=== PATIENT | female | born 1955 ===

== ENCOUNTER 2024-08-09 07:59 | Day surgery (SDC) | payer OTHER, SELFPAY ==
--- NOTE | 2024-08-09 | PATH_ITS ---
[facility] Accession Number: [id number] No. of containers..04 Tissue . 01 Material submitted: . PART A: colon - ASCENDING POLYP PART B: cecum - CECAL POLYP PART C: colon - SECOND ASCENDING POLYP PART D: sigmoid colon - SIGMOID POLYP . 01 Diagnosis: Part A: ASCENDING POLYP: Tubular adenoma. . Part B: CECAL POLYP: Tubular adenoma. . Part C: SECOND ASCENDING POLYP: Tubular adenoma. . Part D: SIGMOID POLYP: Colonic mucosa with no diagnostic alterations. No neoplasm or definite polyp identified. [facility] 08/13/20241448 Local . 01 Electronically signed: . Bernabe Leigh MD, Pathologist NPI- [id number] . 01 Gross description: . A. Received in formalin with two patient identifiers and ascending colon polyp, are multiple hernandez and brown soft tissue fragments aggregating to 1.3 x 0.5 x 0.2 cm. Filtered and submitted in A1. . B. Received in formalin with two patient identifiers and cecal polyp, is a single hernandez soft tissue fragment, 0.4 cm in greatest dimension, submitted in B1. . C. Received in formalin with two patient identifiers and second ascending polyp, is a single hernandez soft tissue fragment, 0.3 cm in greatest dimension, submitted in C1. . D. Received in formalin with two patient identifiers and sigmoid polyp, is a single hernandez soft tissue fragment, 0.3 cm in greatest dimension, submitted in D1. ([id number]) /MRV 08/13/20241448 Local . 01 Pathologist provided ICD-10: D12.0, D12.2, K63.5 . 01 CPT . 280380, 179523, 676759, 964937 Specimen Comment: A courtesy copy of this report has been sent to [phone] Performed at: [address] [facility], [place], [place] [id number] MD Bernabe Leigh MD Phone: [phone]
[2024-08-09 08:23] VITALS: BP 162/105; PULSE 84; RESP 20; TEMP 36.4; O2SAT 95
--- NOTE | 2024-08-09 08:55 | PM.HP.1 ---
History of Present Illness History of Present Illness Date Patient Seen: 08/09/24 Time Patient Seen: 08:55 Chief complaint: SDC Narrative: Lory is a 68-year-old woman with a history of colon polyps. Her last colonoscopy was proximally 2 years ago at [facility]. She does not know exactly how many polyps were removed. Her mother was diagnosed with colon cancer in her 90s. [facility] Social History Smoking Status: Current every day smoker alcohol intake: current Meds Home Medications and Allergies Home Medications Medication Instructions Recorded Confirmed Type sodium,potassium,mag sulfates 17.5 See Rx Instructions PO .COMPLEX 07/06/24 Rx gram-3.13 gram-1.6 gram oral soln #354 mL (Suprep Bowel Prep Kit) alprazolam 0.5 mg tablet 2.5 mg PO DAILY 08/09/24 08/09/24 History amlodipine 5 mg tablet (Norvasc) 7 mg PO DAILY 08/09/24 08/09/24 History ketorolac 10 mg tablet 10 mg PO Q6H PRN Pain (Scale Score 08/09/24 08/09/24 History 4-6) lisinopril 40 mg tablet 40 mg PO DAILY 08/09/24 08/09/24 History Allergies Allergy/AdvReac Type Severity Reaction Status Date / Time morphine Allergy Intermediate ITCHING Verified 08/09/24 08:33 ibuprofen AdvReac Severe Back Pain Verified 08/09/24 08:33 Exam Vital Signs (past 8 hours): - 08/09/24 08:23 Temperature 97.6 F Pulse Rate 84 Respiratory Rate 20 Blood Pressure 162/105 H Pulse Oximetry 95 Oxygen Delivery Method Room Air Oxygen Delivery Method Room Air Const General: No acute distress Resp Effort & Inspection: normal respiratory effort Assessment & Plan Assessment and plan (1) History of colon polyps: Status: Acute Plan We discussed the risks and benefits of colonoscopy for history of polyps and she would like to proceed. Time-Based Coding :: [TOTAL MINUTES] spent with patient and on the chart (including review of chart, obtaining history, exam, reviewing outside data, placing orders, documenting exam and treatment plan, and counseling patient) on [DATE].
[2024-08-09 09:40] VITALS: BP 186/118; PULSE 71; RESP 25; TEMP 36.3; O2SAT 97
--- NOTE | 2024-08-09 09:42 | PM.OP.COLON ---
Operative Date/Time/Diagnoses Date of procedure: 08/09/24 Time of procedure: 09:42 Pre-op diagnosis: History of colon polyps Post-op diagnosis: same Procedure & Clinicians Study performed: Colonoscopy Same procedure as scheduled: Yes Surgeon: Tank Mcnair Procedure Notes Procedure in detail: Surgeon: Tank Mcnair MD Anesthesia: Wilver Pierre MD Procedure: The patient was brought to the endoscopy suite, placed in left lateral decubitus position. The patient was connected to monitoring devices. A time-out was performed. Sedation was administered. Once the patient was adequately sedated, a digital rectal exam was performed and was normal. The scope was then inserted and advanced to the cecum where the appendiceal orifice was identified and photographed. The scope was then slowly withdrawn over greater than 6 minutes. The mucosa was thoroughly inspected. There was a 4 mm polyp in the cecum removed with the Jumbo forceps. There was 1.2 cm flat polyp in the ascending colon just past the ileocecal valve. It appeared to be quite fixed to the underlying tissue and there were folds of mucosa radiating from polyp. We attempted a saline lift but polyp would not lift easily. We attempted to remove the polyp with the snare but could not get the snare to stay on the relatively flat fixed polyp. We did suctioned a few shavings off of the polyp from the failed attempt at snaring. We then took multiple biopsies using a Jumbo cold forceps. We found an additional 5 mm ascending colon polyp which was removed with the Jumbo forceps. There was a 5 mm polyp in the sigmoid colon removed with the Jumbo forceps. There was scattered sigmoid diverticulosis. The scope was retroflexed in the rectum. There were internal hemorrhoids. The scope was straightened and removed. The patient was awakened and brought to recovery. Scope withdrawal time: 23 minutes Sedation time: 29 minutes EBL: 5 mL Findings: 4 mm cecal polyp, 1.2 cm flat fixed ascending colon polyp, 5 mm ascending polyp, 5 mm sigmoid polyp, sigmoid diverticulosis and internal hemorrhoids Post-procedure Disposition: PACU
[2024-08-09 09:45] VITALS: BP 155/97; PULSE 68; RESP 21; O2SAT 97
[2024-08-09 09:50] VITALS: BP 152/95; PULSE 66; RESP 22; O2SAT 97
[2024-08-09 10:05] VITALS: BP 114/77; PULSE 65; RESP 16; O2SAT 97
== END 2024-08-09 10:17 | disposition home or self-care (01) ==
PROVIDERS: PCP Internal Medicine; Referring Provider Surgery; Visit Provider Surgery
PROC: 0DJD8ZZ Inspection of Lower Intestinal Tract, Via Natural or Artificial Opening Endoscopic (ICD-10-PCS; CPT 45378; principal; 2024-08-09 09:15)
DX: Z12.11 Encounter for screening for malignant neoplasm of colon (principal); Z86.0100 Personal history of colon polyps, unspecified; K57.30 Diverticulosis of large intestine without perforation or abscess without bleeding; K64.8 Other hemorrhoids; D12.2 Benign neoplasm of ascending colon; D12.0 Benign neoplasm of cecum; D12.5 Benign neoplasm of sigmoid colon
CPT/HCPCS: 45381; 45385; 45380; J2704

== ENCOUNTER 2025-06-27 17:29 | Observation (INO) | payer OTHER, SELFPAY ==
[2025-06-27] VITALS (11 sets, daily range): BP systolic 142–179; BP diastolic 75–139; PULSE 63–75; RESP 16–27; TEMP 36.1; O2SAT 95–98; BMI 42.5
--- NOTE | 2025-06-27 17:46 | EKG_ITS ---
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
--- NOTE | 2025-06-27 17:46 | DI.RAD.S_ITS ---
PROCEDURE: XR CHEST 1V INDICATIONS: Chest Pain TECHNIQUE: One view of the chest was acquired. COMPARISON: None. FINDINGS: Surgical changes and devices: None. Lungs and pleura: Lungs are clear. No pleural effusions or pneumothorax. Mediastinum: Mediastinal contours appear normal. Heart size is normal. Bones and chest wall: No suspicious bony lesions. Overlying soft tissues appear unremarkable. IMPRESSION: No acute cardiopulmonary abnormality is seen. Dictated by: Teddy Chavez M.D. on 06/27/2025 at 18:22 Approved by: Teddy Chavez M.D. on 06/27/2025 at 18:22
[2025-06-27 18:35] LABS: INR 1.0 (0.9-1.3); Prothrombin Time 11.0 SECONDS (9.4-12.5)
[2025-06-27 18:37] LABS: PTT Partial Thromboplastin Tim 31 SECONDS (25.1-36.5)
[2025-06-27 18:44] LABS: Alanine Aminotransferase 24 IU/L (<35); Albumin 4.6 g/dL (3.5-5.0); Albumin Globulin Ratio 1.7 (1.0-2.8); Alkaline Phosphatase 64 U/L (38-126); Blood Urea Nitrogen 15 mg/dL (7-17); Calcium 9.9 mg/dL (8.4-10.2); Carbon Dioxide 27 mmol/L (22-32); Chloride 101 mmol/L (98-107); Creatine Kinase 37 U/L (30-135); Estimated Glomerular Filt Rate > 60 mL/min (>60); Globulin 2.7 g/dL (1.7-4.1); Glucose 102 mg/dL (70-99); HEMOLYSIS 40 (0-50); Lipase 112 U/L (23-300); Magnesium 1.7 mg/dL (1.6-2.3); Potassium 4.3 mmol/L (3.4-5.1); Sodium 137 mmol/L (137-145); Total Protein 7.3 g/dL (6.3-8.2)
[2025-06-27 18:47] LABS: Add Manual Diff / Slide Review NO; Hematocrit 44.1 % (36-46); Hemoglobin 14.6 g/dL (12.0-16.0); Lymphocytes Absolute Auto 1500 /uL (1100-4500); Mean Corpuscular HGB Conc 33.2 % (30-36); Mean Corpuscular Hemoglobin 29.2 PG (26-34); Mean Corpuscular Volume 88.0 fL (80-100); Platelet Count 267 X10^3/uL (150-400)
[2025-06-27 18:56] LABS: NT-proBNP (BNP-Adult 18+) 188 pg/mL (<125); Troponin I < 0.012 ng/mL (0.01-0.034)
--- NOTE | 2025-06-27 20:42 | ED.ARRPALP ---
HPI - Arrhythmia/Palpitations General Chief Complaint: Arrhythmia/Palpitations Stated Complaint: irregular heart beat Time Seen by Provider: 06/27/25 20:41 Source: patient, RN notes reviewed and old records reviewed Mode of arrival: Ambulatory Limitations: no limitations History of Present Illness HPI narrative: 69-year-old female history of lymphoma treated with chemo and radiation, hypertension with complaint of chest tightness and irregular heartbeat for 4 days. Patient notes this has a little bit of mild headache she thought she had a fever the other day. She has felt a little bit of sweaty she has has a little bit of mild nonproductive cough. Denies any other upper respiratory symptoms no nasal congestion. She has a little bit of left-sided chest discomfort radiates towards left shoulder. She has noticed it has been irregular heartbeat when she is up and ambulating but not at rest. She noted his blood pressure has been high in the last several days. She denies any nausea or vomiting. No new swelling of her extremities. Has not had similar symptoms in the past. Patient did take an aspirin 325 mg. Prior surgeries are breast reduction and ureteral stent secondary to lymphoma she states the mass resolved after chemo and radiation. No tobacco, 1 alcoholic drink nightly, no recreational drugs. Denies significant cardiac history with family. Primary care is a Meghann Dewitt. Related Data Home Medications ?Medication ?Instructions ?Recorded ?Confirmed alprazolam 0.5 mg tablet 2.5 mg PO DAILY 08/09/24 06/28/25 amlodipine 5 mg tablet (Norvasc) 7 mg PO DAILY 08/09/24 06/28/25 ketorolac 10 mg tablet 10 mg PO Q6H PRN Pain (Scale Score 08/09/24 06/28/25 4-6) lisinopril 40 mg tablet 40 mg PO DAILY 08/09/24 06/28/25 Allergies Allergy/AdvReac Type Severity Reaction Status Date / Time morphine Allergy Intermediate ITCHING Verified 09/12/24 11:33 ibuprofen AdvReac Severe Back Pain Verified 09/12/24 11:33 Review of Systems Review of Systems ROS Unobtainable: All systems reviewed & are unremarkable except as noted in HPI and below Patient History Social History household members: spouse Smoking Status: Never smoker alcohol intake: current Smoking Status: Never smoker alcohol intake frequency: 0-2 drinks per day Exam Narrative Exam Narrative: GENERAL: Alert and oriented x three, female in mild distress HEENT: Head normocephalic, atraumatic, EOMI, pupils reactive, face symmetric, moist mucous membranes NECK: Supple, full range of motion CARDIOVASCULAR: Regular rate and rhythm without murmurs, rubs or gallops. No JVD. No edema bilateral lower extremities RESPIRATORY: Breath sounds equal bilaterally, no wheezes rales or rhonchi. ABDOMEN: Soft, nontender. Normoactive bowel sounds all 4 quadrants. No guarding or rebound, rigidity, no mass : No CVA tenderness EXTREMITIES: Normal range of motion, no clubbing or edema. Neurovascularly intact NEUROLOGICAL: Cranial nerves II through XII grossly intact. Moving all extremities SKIN: Warm, dry, no petechiae, no rashes or lesions. Initial Vital Signs Initial Vital Signs: Vital Signs Temperature 97 F L 06/27/25 17:42 Pulse Rate 72 06/27/25 17:42 Respiratory Rate 16 06/27/25 17:42 Blood Pressure 177/104 H 06/27/25 17:42 Pulse Oximetry 96 06/27/25 17:42 Oxygen Delivery Method Room Air 06/27/25 17:42 Scores HEART Score Heart Score history: Highly Suspicious Heart Score EKG: Normal Heart Score Age: > or = 65 years old Heart Score risk factors: 1-2 risk factors Heart Score troponin: < or = to normal limit Heart Score Total: 5 Course Orders Ordered: ED Orders 06/27/25 20:44 EKG-12 Lead Stat 06/27/25 21:06 Trop I [Troponin I] Stat 06/27/25 21:07 Covid-19 + FLU A/B + RSV - PCR Stat 06/27/25 22:07 Consult to Cardiology Stat Acetaminophen (Acetaminophen 325 Mg Tablet) 650 mg PO Q6H PRN PRN Reason: Fever/Mild Pain (1-3) Amlodipine Besylate (Amlodipine 5 Mg Tablet) 7 mg PO DAILY [facility] Aspirin (Aspirin Ec 81 Mg Tablet) 81 mg PO DAILY [facility] Labetalol HCl (Labetalol 20 Mg/4 Ml Syringe) 10 mg IV Q4HR PRN PRN Reason: SBP > 180 or DBP > 100 Lisinopril (Lisinopril 20 Mg Tablet) 40 mg PO DAILY [facility] Morphine Sulfate (Morphine 4 Mg/Ml Inj) 3 mg IV Q2HR PRN PRN Reason: Pain, Severe (7-10) Naloxone HCl (Naloxone 0.4 Mg/Ml Vial) 0.2 mg IV Q2MIN PRN PRN Reason: Opiate Reversal Nitroglycerin (Nitroglycerin 0.4 Mg Sl Tab) 0.4 mg SL [id number] PRN PRN Reason: Chest Pain Non-Formulary Medication (Alprazolam) 2.5 mg PO DAILY HELGA Ondansetron HCl (Ondansetron 4 Mg/2 Ml Inj) 4 mg IV Q8HR PRN PRN Reason: Nausea And Vomiting Sodium Chloride (Sodium Chloride 0.9% Flush) 10 ml IV PRN PRN PRN Reason: Flush Sodium Chloride (Sodium Chloride 0.9% Flush) 10 ml IV BID HELGA Discontinued Medications Aspirin (Aspirin 81 Mg Chew Tab) 324 mg PO NOW ONE Stop: 06/27/25 17:47 Last Admin: 06/27/25 22:11 Dose: Not Given Documented By: DANIEL Hydralazine HCl (Hydralazine 20 Mg/Ml Vial) 10 mg IV NOW ONE Stop: 06/28/25 01:02 Last Admin: 06/28/25 01:33 Dose: 10 mg Documented By: Vital Signs Vital signs: Vital Signs - 8 hr 06/27/25 20:30 06/27/25 20:30 06/27/25 21:00 Pulse Rate 65 63 Respiratory Rate 18 19 Blood Pressure 165/85 H Pulse Oximetry 97 96 06/27/25 21:01 06/27/25 21:01 06/27/25 21:30 Pulse Rate 64 64 Respiratory Rate 19 20 Blood Pressure 179/84 H Pulse Oximetry 97 96 06/27/25 21:30 06/27/25 22:00 06/27/25 22:00 Pulse Rate 64 Respiratory Rate 17 Blood Pressure 154/91 H 142/90 H Pulse Oximetry 96 06/27/25 22:30 06/27/25 22:30 Pulse Rate 69 Respiratory Rate 19 Blood Pressure 143/90 H Pulse Oximetry 95 MDM - Arrhythmia/Palpitations Lab Data 06/27/25 18:15 06/27/25 18:15 Labs: Lab Results 06/27/25 06/27/25 06/27/25 Range/Units 18:15 21:06 21:07 WBC 7.4 (4.5-11.0) X10^3/uL RBC 5.02 (4.0-5.2) X10^6/uL Hgb 14.6 (12.0-16.0) g/dL Hct 44.1 (36-46) % MCV 88.0 (80-100) fL MCH 29.2 (26-34) PG MCHC 33.2 (30-36) % RDW 13.9 (11.6-14.8) % Plt Count 267 (150-400) X10^3/uL Neut % (Auto) 69.4 (50-75) % Lymph % (Auto) 20.2 L (25-40) % [place] % (Auto) 8.5 (3-14) % Eos % (Auto) 1.2 L (2-4) % Baso % (Auto) 0.7 (0-2) % Neut # (Auto) 5100 (8128-2807) /uL Lymph # (Auto) 1500 (3045-5546) /uL [place] # (Auto) 600 (0-900) /uL Eos # (Auto) 100 (0-450) /uL Baso # (Auto) 100 (0-100) /uL PT 11.0 (9.4-12.5) SECONDS INR 1.0 (0.9-1.3) APTT 31 (25.1-36.5) SECONDS Sodium 137 (137-145) mmol/L Potassium 4.3 (3.4-5.1) mmol/L Chloride 101 (98-107) mmol/L Carbon Dioxide 27 (22-32) mmol/L BUN 15 (7-17) mg/dL Creatinine 0.72 (0.52-1.04) mg/dL Estimated GFR > 60 (>60) mL/min BUN/Creatinine Ratio 20.8 (6-22) Glucose 102 H (70-99) mg/dL Calcium 9.9 (8.4-10.2) mg/dL Magnesium 1.7 (1.6-2.3) mg/dL Total Bilirubin 0.6 (0.2-1.3) mg/dL AST 30 (14-36) IU/L ALT 24 (<35) IU/L Alkaline Phosphatase 64 (38-126) U/L Total Creatine Kinase 37 (30-135) U/L Troponin I < 0.012 < 0.012 (0.01-0.034) ng/mL NT-Pro-B Natriuret Pep 188 H (<125) pg/mL Total Protein 7.3 (6.3-8.2) g/dL Albumin 4.6 (3.5-5.0) g/dL Globulin 2.7 (1.7-4.1) g/dL Albumin/Globulin Ratio 1.7 (1.0-2.8) Lipase 112 (23-300) U/L SARS-CoV-2 (PCR) Negative (Negative) Influenza A (RT-PCR) Flu a negative (NEGATIVE) Influenza B (RT-PCR) Flu b negative (NEGATIVE) RSV (PCR) Negative (Negative) ECG Data Attestation: I personally reviewed and interpreted this ECG as follows: Prior ECG tracings: not available for review Interpretation: Sinus rhythm rate of 68 CT 146 QRS 84 QTC of 408, no acute ST-elevation or depression noted no prior for comparison. Patient has has a biphasic P wave was Q-wave in lead 340 and AVF not appreciated in lead 2. No priors for comparison Repeat EKG shows a sinus rhythm rate of 63 CT 158 QRS is 78 QTC 392, no acute ST elevation depression noted. MDM Narrative Medical decision making narrative: EKG shows sinus rhythm. Repeat EKG no dynamic changes appreciated. Labs show normal CBC, coags, CMP, glucose are appropriate troponins less than 0.012 with a BNP of 188. Repeat troponin as less than 0.012 Chest x-ray shows no acute cardiopulmonary abnormality. covid/influenza/RSV is negative. Patient took aspirin 325 mg at home earlier today. Heart score is 5. Discussed chest pain observation, patient is agreeable. Currently asymptomatic. Spoke with cardiology, Dr. Navarro @ [phone] stress test and admission. Will see in the morning. Spoke with hospitalist Dr. Preston @ [phone] accepts for observation. Discharge Plan Departure Patient Disposition: Admitted as Observation Clinical Impression: Chest pain Admit Date/Time: 06/27/25 22:30 Admit Provider: José Miguel Preston
--- NOTE | 2025-06-27 21:15 | EKG_ITS ---
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
[2025-06-27 21:39] LABS: Troponin I < 0.012 ng/mL (0.01-0.034)
--- NOTE | 2025-06-27 21:45 | PC.NURSE ---
The patient has been having 2 days of feeling crappy. She has been having higher blooder pressure than normal even after taking her HTN meds as prescribed. She even took and extra 2mg of her norvasc which seemed to help her HTN. She also take lisinopril. She states her palpitations, hot and sweaty feelings happen more when she gets up to walk. She also feels heavy in the chest with shoulder pain, tired, malaise, and lightheaded. She has been having some mild constipation.
[2025-06-27 21:48] LABS: Influenza A - CEPHEID Flu A NEGATIVE (NEGATIVE); Influenza B - CEPHEID Flu B NEGATIVE (NEGATIVE)
[2025-06-27 21:49] LABS: COVID-19 CEPHEID 4-PLEX PCR Negative (Negative)
--- NOTE | 2025-06-27 22:52 | DI.ECHO.S_ITS ---
:Name: JOSEPH REAGAN? Study Date: 06/28/2025? Height: 67 in? : :Hospital ?ReadingLocation:? Weight: 280 lb : : ?Gender: Female?BSA: 2.3 m2??? : :: 1955? Age: 69 yrs? BP: 126/81 mmHg: :Reason For Study: CHEST PAIN? : :Ordering Physician: TAMIKO,? : :COLLIN?Performed By: Erlin Silvestre?: :Referring: COLLIN MORRISON? : + + Interpretation Summary The ejection fraction is estimated to be 60-65%. Normal diastolic function. The right ventricle is normal in size and function. Pulmonary artery pressures cannot be estimated because of the lack of a measurable TR jet velocity. The ascending aorta is enlarged 3.9cm. No significant valvular abnormalities. Procedure: ?A two-dimensional transthoracic echocardiogram with color flow and Doppler was performed. The study quality was technically difficult. A contrast injection of Definity was performed to improve assessment of LV function. There is no prior echocardiogram noted for this patient. The patient was in normal sinus rhythm during the exam. Left Ventricle: ?The left ventricle is normal in size. Left ventricular wall thickness is mildly increased. The ejection fraction is estimated to be 60-65%. There are no focal wall motion abnormalities. Normal diastolic function. Right Ventricle: ?The right ventricle is normal in size and function. Atria: ?The left atrial size is normal. Right atrial size is normal.The interatrial septum is not well visualized. Mitral Valve: ?Thereis mild mitral annular calcification. The mitral valve is grossly normal. There is no mitral regurgitation noted. Aortic Valve:? ?The aortic valve is trileaflet. The aortic valve opens well. The aortic valve is mildly calcified. There is no aortic valve stenosis. No aortic regurgitation is present. Tricuspid Valve:? ?The tricuspid valve is not well visualized. No tricuspid regurgitation. Pulmonary artery pressures cannot be estimated because of the lack of a measurable TR jet velocity. Pulmonic Valve: ?The pulmonic valve is not well visualized. There is no pulmonic valvular regurgitation. Great Vessels:? ?The aortic root is normal size. The ascending aorta is mildly enlarged. The pulmonary is not well visualized. The inferior vena cava was not well visualized. Pericardium/ Pleura ?Thereis no pericardial effusion. There is no pleural effusion. MMode/2D Measurements & Calculations LVIDd: 4.6 cm?LVOTdiam: 2.3 cm LVIDs: 3.1 cm?Ao root diam: 3.7 cm FS: 33.2 %? asc Aorta Diam: 3.9 cm EPSS: 0.64 cm IVSd: 1.2 cm LVPWd: 1.1 cm LV swan. diameter/BSA (cm/m^2): 2.0 LV sys. diameter/BSA (cm/m^2):1.3 LA A2 area: 10.2 cm2?RA long axis: 5.9 cm LA A4 area: 26.5 cm2?RA area: 15.7 cm2 LA length (vol): 6.6 cm? RA vol: 35.6 ml LA vol: 34.5 ml? RA : 15.3 ml/m2 LA vol index: 14.8 ml/m2 RVD1 (basal): 2.6 cm RVD2 (mid): 2.0 cm TAPSE: 2.9 cm Doppler Measurements & Calculations Ao V2 max: 126.8 cm/sec? LVOT Max Himanshu: 107.7 cm/sec Ao V2 mean: 87.8 cm/sec?LV V1 max P.6 mmHg Ao max P.4 mmHg?LV V1 VTI: 23.5 cm Ao mean P.4 mmHg? DIEGO(I,D): 3.7 cm2 Ao V2 VTI: 25.4 cm?DIEGO(V,D): 3.4 cm2 sev ratio: 0.93 DIEGO indexed to BSA (cm^2/m^2): 1.6 MV E max himanshu: 61.2 cm/sec?PA V2 max: 107.1 cm/sec MV A max himanshu: 86.4 cm/sec?PA V2 mean: 70.4 cm/sec MV E/A: 0.71?PA mean P.2 mmHg Med Peak E' Himanshu: 6.7 cm/sec?PA pr(Accel): 48.2 mmHg E/E' med: 9.2 Lat Peak E' Himanshu: 5.3 cm/sec E/E' lat: 11.5 E/e' average: 10.3 MV dec time: 0.29 sec SV(LVOT): 94.7 ml Reading Physician:02:29 PM
[2025-06-28 01:33] VITALS: BP 137/84; PULSE 62
[2025-06-28] MEDS: hydrALAZINE 20 MG/ML VIAL 10 MG IV (01:33)
[2025-06-28 01:38] VITALS: BP 134/84; PULSE 62
[2025-06-28 01:50] VITALS: BP 133/78; PULSE 68
--- NOTE | 2025-06-28 04:43 | PM.HP.1 ---
History of Present Illness History of Present Illness Date Patient Seen: 06/28/25 Time Patient Seen: 02:15 Chief complaint: irregular heart beat Narrative: 69-year-old female with past medical history of lymphoma status postchemotherapy and radiation, hypertension, anxiety presents with complaint of chest tightness and irregular heartbeat. Per the patient's report, the patient started have intermittent irregular heartbeat sensation and chest tightness. The patient states that her chest tightness is across her whole chest and does seem to associate slightly with the irregular heartbeat sensation. The patient also has some symptoms of mild headache and subjective fever that started yesterday. He denies any new shortness of breath. The patient denies any known history of coronary disease or any family history of early coronary disease. The patient does not take daily aspirin at home. The patient does admit to drinking 1 alcoholic drink per night but denies any over use or abuse. Otherwise the patient denies any nausea, vomiting, diaphoresis, chills or dysuria. In the emergency room, the patient remains hemodynamically stable. Labs show stroke that was negative x 2. Otherwise benign. BNP is 188. EKG shows no signs of acute ST or T wave changes to suggest acute ischemia. ER physician did talk to Dr. Navarro, from cardiology, who recommended to admit the patient for echocardiogram, Trope trending and stress test in the morning. [facility] Social History household members: spouse Smoking Status: Never smoker alcohol intake: current Meds Home Medications and Allergies Home Medications ?Medication ?Instructions ?Recorded ?Confirmed ?Type alprazolam 0.5 mg tablet 2.5 mg PO DAILY 08/09/24 06/28/25 History amlodipine 5 mg tablet (Norvasc) 7 mg PO DAILY 08/09/24 06/28/25 History ketorolac 10 mg tablet 10 mg PO Q6H PRN Pain (Scale Score 08/09/24 06/28/25 History 4-6) lisinopril 40 mg tablet 40 mg PO DAILY 08/09/24 06/28/25 History Allergies Allergy/AdvReac Type Severity Reaction Status Date / Time morphine Allergy Intermediate ITCHING Verified 09/12/24 11:33 ibuprofen AdvReac Severe Back Pain Verified 09/12/24 11:33 Review of Systems Review of Systems ROS: Yes All systems reviewed with the patient and are negative except as otherwise documented Exam Vital Signs (past 8 hours): - 06/27/25 21:00 06/27/25 21:01 06/27/25 21:01 Temperature Pulse Rate 63 64 Respiratory Rate 19 19 Blood Pressure 179/84 H Pulse Oximetry 96 97 06/27/25 21:30 06/27/25 21:30 06/27/25 22:00 Temperature Pulse Rate 64 64 Respiratory Rate 20 17 Blood Pressure 154/91 H Pulse Oximetry 96 96 06/27/25 22:00 06/27/25 22:30 06/27/25 22:30 Temperature Pulse Rate 69 Respiratory Rate 19 Blood Pressure 142/90 H 143/90 H Pulse Oximetry 95 06/27/25 23:45 06/28/25 01:33 06/28/25 01:38 Temperature 96.9 F L Pulse Rate 75 62 62 Respiratory Rate 16 Blood Pressure 175/139 H 137/84 134/84 Pulse Oximetry 06/28/25 01:50 Temperature Pulse Rate 68 Respiratory Rate Blood Pressure 133/78 Pulse Oximetry Oxygen Delivery Method Room Air Narrative Exam Narrative: Physical Exam: GENERAL: The patient is not in any acute distressed. Awake and alert. HEENT: Nonicteric sclerae, PERRLA, EOMI. Oropharynx clear. Moist mucous membranes. Conjunctivae appear well perfused. HEART: Regular rate and rhythm without murmurs. No lower extremities edema. LUNGS: Clear to auscultation bilaterally. No wheezing, crackles or rhonchi ABDOMEN: Soft, positive bowel sounds, nontender. SKIN: No rash, no excessive bruising, petechiae, or purpura. NEUROLOGIC: AxO x 3. Cranial nerves II-XII intact without motor/sensory deficit. Objective Labs 06/27/25 18:15 06/27/25 18:15 Labs: Laboratory Results - last 24 hr 06/27/25 06/27/25 06/27/25 18:15 21:06 21:07 WBC 7.4 RBC 5.02 Hgb 14.6 Hct 44.1 MCV 88.0 MCH 29.2 MCHC 33.2 RDW 13.9 Plt Count 267 Neut % (Auto) 69.4 Lymph % (Auto) 20.2 L [place] % (Auto) 8.5 Eos % (Auto) 1.2 L Baso % (Auto) 0.7 Neut # (Auto) 5100 Lymph # (Auto) 1500 [place] # (Auto) 600 Eos # (Auto) 100 Baso # (Auto) 100 PT 11.0 INR 1.0 APTT 31 Sodium 137 Potassium 4.3 Chloride 101 Carbon Dioxide 27 BUN 15 Creatinine 0.72 Estimated GFR > 60 BUN/Creatinine Ratio 20.8 Glucose 102 H Calcium 9.9 Magnesium 1.7 Total Bilirubin 0.6 AST 30 ALT 24 Alkaline Phosphatase 64 Total Creatine Kinase 37 Troponin I < 0.012 < 0.012 NT-Pro-B Natriuret Pep 188 H Total Protein 7.3 Albumin 4.6 Globulin 2.7 Albumin/Globulin Ratio 1.7 Lipase 112 SARS-CoV-2 (PCR) Negative Influenza A (RT-PCR) Flu a negative Influenza B (RT-PCR) Flu b negative RSV (PCR) Negative Assessment & Plan Assessment & Plan narrative: Chest pain. Admit the patient to medical telemetry under observation. Of note patient is currently chest pain-free. Continue to monitor for any recurrent chest pain. Continue aspirin. Check lipid profile and A1c in the morning. Echo pending. Continue to trend Trope. Note first 2 tropes are negative. Will also get nuclear stress test in the morning. Hypertension. Monitor blood pressure and resume home medication accordingly. Anxiety. Resume antianxiety medication. Morbid obesity. History of lymphoma status post chemotherapy and radiation. Follow-up as outpatient. DVT prophylaxis SCDs due to observational status. CODE STATUS full code. Disposition likely home in 1 to 2 days. - As the provider of this telehealth evaluation, requested by the patient's evaluating physician, I attest that I introduced myself to the patient, provided my credentials and determined that telemedicine via a real-time, 2 way interactive audio and video platform is an appropriate and effective means of providing this service. - I reviewed the patient's chart and had a discussion with the member of the patient's treatment team. - The patient and I mutually agreed with continuation of this evaluation via telemedicine. The patient consented for the telemedicine evaluation. - This virtual encounter was taken place from [place] by Dr. José Miguel Preston. The patient was evaluated at [facility]. The encounter was approximately 35 minutes. The nurse was present during the entire time of the encounter and was able assists with the stethoscope to listen to the patients. Time-Based Coding :: [TOTAL MINUTES] spent with patient and on the chart (including review of chart, obtaining history, exam, reviewing outside data, placing orders, documenting exam and treatment plan, and counseling patient) on [DATE]. Quality VTE Deep Vein Thrombosis/Pulmonary Embolism Present on Admission: No
[2025-06-28 05:32] LABS: Add Manual Diff / Slide Review NO; Hematocrit 39.8 % (36-46); Hemoglobin 13.8 g/dL (12.0-16.0); Lymphocytes Absolute Auto 2100 /uL (1100-4500); Mean Corpuscular HGB Conc 34.7 % (30-36); Mean Corpuscular Hemoglobin 30.2 PG (26-34); Mean Corpuscular Volume 87.0 fL (80-100); Platelet Count 242 X10^3/uL (150-400)
[2025-06-28 05:57] LABS: Troponin I < 0.012 ng/mL (0.01-0.034)
[2025-06-28 06:21] LABS: Blood Urea Nitrogen 15 mg/dL (7-17); Calcium 9.4 mg/dL (8.4-10.2); Carbon Dioxide 24 mmol/L (22-32); Chloride 105 mmol/L (98-107); Estimated Glomerular Filt Rate > 60 mL/min (>60); Glucose 104 mg/dL (70-99); HEMOLYSIS 17 (0-50); Potassium 4.0 mmol/L (3.4-5.1); Sodium 136 mmol/L (137-145)
[2025-06-28 06:27] VITALS: BP 126/71; PULSE 63
--- NOTE | 2025-06-28 08:50 | P.CONS_ITS ---
History of Present Illness Consult details Date Patient Seen: 06/28/25 Time Patient Seen: 08:50 Chief complaint: irregular heart beat Reason for consult: Chest discomfort with irregular heart beat. Narrative: 69 -year-old female with past medical history of hypertension for 10 years, non- Hodgkin's lymphoma abdomen status post chemotherapy, status post solitary kidney status post obstructive uropathy due to non-Hodgkin's lymphoma nonsmoker came to the hospital with ongoing symptoms of irregular heartbeats chest tightness and intermittent episodes of shortness of breath 3-4 days prior to admission. This is a delightful female with history of hypertension on medication has been experiencing these symptoms of chest tightness and irregular heartbeats off and on for last 3 or 4 days. She also had some spells where she felt shortness of breath along with breaking out in sweats. She spoke to her best friend who has a retired registered nurse who advised her to come to the hospital to be checked out. Patient states that she does not exercise regularly and reported no exertional induced symptoms of chest tightness or shortness of breath and irregular heartbeats. She denies any recent weight loss weight gain. No history of orthopnea PND leg swelling presyncope or syncope. She denies any urinary symptoms. She has a history of intermittent headaches. She denies any family history of premature coronary artery disease. Meds Home Medications and Allergies Home Medications ?Medication ?Instructions ?Recorded ?Confirmed ?Type alprazolam 0.5 mg tablet 2.5 mg PO DAILY 08/09/2403/17 History amlodipine 5 mg tablet (Norvasc) 7 mg PO DAILY 4 06/28/25 History ketorolac 10 mg tablet 10 mg PO Q6H PRN Pain (Scale Score 08/09/24 06/28/25 History 4-6) lisinopril 40 mg tablet 40 mg PO DAILY 08/09/2403/17 History Allergies Allergy/AdvReac Type Severity Reaction Status Date / Time morphine Allergy Intermediate ITCHING Verified 09/12/24 11:33 ibuprofen AdvReac Severe Back Pain Verified 09/12/24 11:33 Review of Systems Cardiovascular Cardiovascular: Reports diaphoresis and Reports irregular heart rhythm Comments: Chest tightness and shortness of breath episodes. Exam Vital Signs (past 8 hours): - 06/28/25 01:33 06/28/25 01:38 06/28/25 01:50 Pulse Rate 62 62 68 Blood Pressure 137/84 134/84 133/78 06/28/25 06:27 Pulse Rate 63 Blood Pressure 126/71 Oxygen Delivery Method Room Air Const General: cooperative, comfortable and well developed Nutritional Appearance: obese DAMARI Head: normal to inspection Eyes General: appearance normal, both eyes and all related structures Neck Neck: normal visual inspection Chest Chest: normal inspection of the chest Resp Effort & Inspection: normal respiratory effort Auscultation: clear to auscultation bilaterally Cardio Palpation: normal PMI Rate: regular rate Rhythm: regular rhythm Heart Sounds: S1 normal and S2 normal Other: No leg edema Skin General: no rashes or lesions noted Neuro General: patient oriented x3 Psych Appearance: grossly normal Objective Imaging ECG: My impression: Normal sinus rhythm, left axis deviation, Delayed R wave progression, Non specific STT changes. Labs 06/28/25 05:12 06/28/25 05:12 Labs: Laboratory Results - last 24 hr 06/27/25 06/27/25 06/27/25 18:15 21:06 21:07 WBC 7.4 RBC 5.02 Hgb 14.6 Hct 44.1 MCV 88.0 MCH 29.2 MCHC 33.2 RDW 13.9 Plt Count 267 Neut % (Auto) 69.4 Lymph % (Auto) 20.2 L [place] % (Auto) 8.5 Eos % (Auto) 1.2 L Baso % (Auto) 0.7 Neut # (Auto) 5100 Lymph # (Auto) 1500 [place] # (Auto) 600 Eos # (Auto) 100 Baso # (Auto) 100 PT 11.0 INR 1.0 APTT 31 Sodium 137 Potassium 4.3 Chloride 101 Carbon Dioxide 27 BUN 15 Creatinine 0.72 Estimated GFR > 60 BUN/Creatinine Ratio 20.8 Glucose 102 H POC Whole Bld Glucose Calcium 9.9 Magnesium 1.7 Total Bilirubin 0.6 AST 30 ALT 24 Alkaline Phosphatase 64 Total Creatine Kinase 37 Troponin I < 0.012 < 0.012 NT-Pro-B Natriuret Pep 188 H Total Protein 7.3 Albumin 4.6 Globulin 2.7 Albumin/Globulin Ratio 1.7 Lipase 112 SARS-CoV-2 (PCR) Negative Influenza A (RT-PCR) Flu a negative Influenza B (RT-PCR) Flu b negative RSV (PCR) Negative 06/28/25 06/28/25 05:12 05:49 WBC 8.8 RBC 4.57 Hgb 13.8 Hct 39.8 MCV 87.0 MCH 30.2 MCHC 34.7 RDW 13.7 Plt Count 242 Neut % (Auto) 65.2 Lymph % (Auto) 23.9 L [place] % (Auto) 8.5 Eos % (Auto) 1.6 L Baso % (Auto) 0.8 Neut # (Auto) 5700 Lymph # (Auto) 2100 [place] # (Auto) 700 Eos # (Auto) 100 Baso # (Auto) 100 PT INR APTT Sodium 136 L Potassium 4.0 Chloride 105 Carbon Dioxide 24 BUN 15 Creatinine 0.67 Estimated GFR > 60 BUN/Creatinine Ratio 22.4 H Glucose 104 H POC Whole Bld Glucose 116 H Calcium 9.4 Magnesium Total Bilirubin AST ALT Alkaline Phosphatase Total Creatine Kinase Troponin I < 0.012 NT-Pro-B Natriuret Pep Total Protein Albumin Globulin Albumin/Globulin Ratio Lipase SARS-CoV-2 (PCR) Influenza A (RT-PCR) Influenza B (RT-PCR) RSV (PCR) [facility] Medical History (Updated 06/28/25 @ 09:25 by Roberto Navarro MD) Non-Hodgkin lymphoma in remission Social History household members: spouse Tobacco & Substance Use Smoking Status: Never smoker alcohol intake: current Diet and Exercise Type(s) of exercise: none Assessment & Plan Assessment and plan (1) Hypertension: Qualifiers: Hypertension type: primary hypertension Qualified Code(s): I10 - Essential (primary) hypertension Status: Acute Assessment & Plan narrative: 69-year-old female with past medical history of hypertension on 2 anti hypertensive agents, non-Hodgkin's lymphoma came to the hospital with intermittent episodes of chest tightness, irregular heartbeat skipped heartbeat and episodes of shortness of breath with diaphoresis. Patient is currently pain-free and lying comfortably in bed. Her troponin levels did not elevate an EKG showed normal sinus rhythm left axis deviation with delayed R-wave progression. Given her age and risk factors she was advised admission to the hospital for risk stratification of her symptoms of chest discomfort tightness and irregular heartbeats. 1) chest pain with both typical and atypical features. Advised pharmacological stress test as an inpatient. 2) hypertension patient is currently on amlodipine 10 mg daily and lisinopril 40 mg daily 3) Aspirin 81 mg daily until further notice. 4) cardiac care health counseling. We discussed diet exercise weight management during my visit. Patient informed me that she takes berberine as a supplement. Patient is scheduled for a pharmacological stress test. Please let me know the results when available. Patient is NPO and anxiously awaiting testing and would like to go home. Time-Based Coding :: [TOTAL MINUTES] spent with patient and on the chart (including review of chart, obtaining history, exam, reviewing outside data, placing orders, documenting exam and treatment plan, and counseling patient) on [DATE].
[2025-06-28 09:00] VITALS: BP 143/99; PULSE 65; RESP 17; TEMP 36.4; O2SAT 93
[2025-06-28] MEDS: SODIUM CHLORIDE 0.9% FLUSH 10 ML IV (09:28)
[2025-06-28] MEDS: ASPIRIN EC 81 MG TABLET PO (09:28)
[2025-06-28 12:00] VITALS: BP 146/98; PULSE 70; RESP 17; TEMP 36.1; O2SAT 95
--- NOTE | 2025-06-28 13:26 | CM.DANOTE ---
Patient is a 69 yo female who was admitted OBS Status on 06/27/25 for Chest Pain r/o. Pt has [employer] [facility] ADV for insurance and her PCP is Meghann Dewitt. EMR was reivewed. Per , pt with hx of lymphoma and post chemo/radiation and admitted for stress test and Echo to r/o any cardiac needs. MD states pt low risk and likely can d/c home pending results later today and outpt f/u. Patient resides in [facility] with her and is somewhat active at baseline and confirms she has supports. No hx of admits at [facility]. Due to triage needs, no bedside assessment completed at this time. Plan: SW to follow for test results to confirm safe d/c home later today via spouse POV and any further identified discharge planning needs. YAMILETH Dunn Discharge Planning/Care Management CM Discharge Assessment Start: 06/27/25 23:44 Freq: Status: Active Protocol: Document 06/28/25 13:25 BF (Rec: 06/28/25 13:26 BF [id number]) Discharge Planning Assessment Assigned Discharge YAMILETH Amaya Editor Greeting Card DPOA/Assigned informally spouse Zina Designee Name Advance Directives? No Advance Directives No on File History Provided By Patient,Medical Record Has Patient been No admitted in last 30 days? Prior Living House Arrangements Household Members spouse Type of Drives own vehicle transporation used prior to admit Independent with ADL Yes 's Is patient alert and Yes oriented? Caregiver for No Another Barriers to No Discharge Discharge Plan Home Transportation spouse to transport at d/c Arrangement Referrals Initiated None needed Additional Comment Pending echo and stress test results Whiteboard Updated Yes in Patient Room with name and ext. # of Foreign Exchange Student Coordinator Review Status In Process Please Provide Date 06/28/25 Initial DC Assessment Was Performed Next Review Type Continued Stay Review
--- NOTE | 2025-06-28 15:50 | PM.DS.IH.1 ---
History of Present Illness History of Present Illness Date Patient Seen: 06/28/25 Time Patient Seen: 08:25 Chief complaint: irregular heart beat Narrative: Chief complaint: irregular heart beat Narrative: 69-year-old female with past medical history of lymphoma status postchemotherapy and radiation, hypertension, anxiety presents with complaint of chest tightness and irregular heartbeat. Per the patient's report, the patient started have intermittent irregular heartbeat sensation and chest tightness. The patient states that her chest tightness is across her whole chest and does seem to associate slightly with the irregular heartbeat sensation. The patient also has some symptoms of mild headache and subjective fever that started yesterday. He denies any new shortness of breath. The patient denies any known history of coronary disease or any family history of early coronary disease. The patient does not take daily aspirin at home. The patient does admit to drinking 1 alcoholic drink per night but denies any over use or abuse. Otherwise the patient denies any nausea, vomiting, diaphoresis, chills or dysuria. In the emergency room, the patient remains hemodynamically stable. Labs show stroke that was negative x 2. Otherwise benign. BNP is 188. EKG shows no signs of acute ST or T wave changes to suggest acute ischemia. ER physician did talk to Dr. Navarro, from cardiology, who recommended to admit the patient for echocardiogram, Trope trending and stress test in the morning. Discharge Providers Provider Date of admission: 06/27/25 22:30 Discharge Date: 06/28/25 Primary care physician: Meghann Dewitt MD Consults: 06/27/25 22:07 Consult to Cardiology Stat Comment: Consulting Provider: Roberto Navarro Reason for consultation: chest pain Has provider been notified: Yes Discharge provider: Reji Price MD Summary Hospital Course Discharge Diagnosis: 1. Chest pain, ruled out for myocardial infarction 2. Hypertension 3. Prediabetes 4. History of lymphoma, status post chemoradiotherapy 5. Anxiety 6. Severe obesity Hospital Course: patient was admitted and monitored with serial cardiac enzymes on telemetry. She ruled out for myocardial infarction. Cardiology was consulted and recommended cardiac stress testing. Echocardiogram was obtained and showed ejection fraction 60-65%, no wall motion abnormalities, normal diastolic function, and no significant valvular abnormalities. Due to logistics inpatient cardiac stress testing is not available and close outpatient follow-up is pending arrangement. No other issues arose. Status at Discharge Cognitive/behavioral status at discharge: oriented Functional status at discharge: independent ambulation Overall status at discharge: patient is back to baseline Time Spent with Patient Time spent: Greater than 30 minutes Exam Vital Signs (past 8 hours): - 06/28/25 09:00 06/28/25 12:00 Temperature 97.5 F L 97.0 F L Pulse Rate 65 70 Respiratory Rate 17 17 Blood Pressure 143/99 H 146/98 H Pulse Oximetry 93 95 Oxygen Delivery Method Room Air Objective Labs 06/28/25 05:12 06/28/25 05:12 Labs: Laboratory Results - last 24 hr 06/27/25 06/27/25 06/27/25 18:15 21:06 21:07 WBC 7.4 RBC 5.02 Hgb 14.6 Hct 44.1 MCV 88.0 MCH 29.2 MCHC 33.2 RDW 13.9 Plt Count 267 Neut % (Auto) 69.4 Lymph % (Auto) 20.2 L [place] % (Auto) 8.5 Eos % (Auto) 1.2 L Baso % (Auto) 0.7 Neut # (Auto) 5100 Lymph # (Auto) 1500 [place] # (Auto) 600 Eos # (Auto) 100 Baso # (Auto) 100 PT 11.0 INR 1.0 APTT 31 Sodium 137 Potassium 4.3 Chloride 101 Carbon Dioxide 27 BUN 15 Creatinine 0.72 Estimated GFR > 60 BUN/Creatinine Ratio 20.8 Glucose 102 H POC Whole Bld Glucose Calcium 9.9 Magnesium 1.7 Total Bilirubin 0.6 AST 30 ALT 24 Alkaline Phosphatase 64 Total Creatine Kinase 37 Troponin I < 0.012 < 0.012 NT-Pro-B Natriuret Pep 188 H Total Protein 7.3 Albumin 4.6 Globulin 2.7 Albumin/Globulin Ratio 1.7 Lipase 112 SARS-CoV-2 (PCR) Negative Influenza A (RT-PCR) Flu a negative Influenza B (RT-PCR) Flu b negative RSV (PCR) Negative 06/28/25 06/28/25 05:12 05:49 WBC 8.8 RBC 4.57 Hgb 13.8 Hct 39.8 MCV 87.0 MCH 30.2 MCHC 34.7 RDW 13.7 Plt Count 242 Neut % (Auto) 65.2 Lymph % (Auto) 23.9 L [place] % (Auto) 8.5 Eos % (Auto) 1.6 L Baso % (Auto) 0.8 Neut # (Auto) 5700 Lymph # (Auto) 2100 [place] # (Auto) 700 Eos # (Auto) 100 Baso # (Auto) 100 PT INR APTT Sodium 136 L Potassium 4.0 Chloride 105 Carbon Dioxide 24 BUN 15 Creatinine 0.67 Estimated GFR > 60 BUN/Creatinine Ratio 22.4 H Glucose 104 H POC Whole Bld Glucose 116 H Calcium 9.4 Magnesium Total Bilirubin AST ALT Alkaline Phosphatase Total Creatine Kinase Troponin I < 0.012 NT-Pro-B Natriuret Pep Total Protein Albumin Globulin Albumin/Globulin Ratio Lipase SARS-CoV-2 (PCR) Influenza A (RT-PCR) Influenza B (RT-PCR) RSV (PCR) PFSH Medical History Non-Hodgkin lymphoma in remission Social History household members: spouse Smoking Status: Never smoker alcohol intake: current Type(s) of exercise: none Discharge Plan Discharge Plan Patient Disposition: Home Provider Discharge Comment: Followup for outpatient cardiac stress testing; followup with PCP 1 week Discharge orders & Medications Prescriptions: New aspirin 81 mg tablet,delayed release (DR/EC) 81 mg PO DAILY Qty: 1 0RF Continued amlodipine [Norvasc] 5 mg Tablet 7 mg PO DAILY ketorolac 10 mg tablet 10 mg PO Q6H PRN (Reason: Pain (Scale Score 4-6)) alprazolam 0.5 mg tablet 2.5 mg PO DAILY lisinopril 40 mg tablet 40 mg PO DAILY Follow up/Referrals: Meghann Dewitt MD [Primary Care Provider, Internal Medicine] Visit Report/Discharge Packet Stand Alone Forms: Patient Portal/API, Stroke Signs & Symptoms Discharge Data Primary Care Provider: Meghann Dewitt Attending Provider: José Miguel Preston Admit Date/Time: 06/27/25 22:30 Quality VTE Deep Vein Thrombosis/Pulmonary Embolism Present on Admission: No MIPS - Admit I confirm the patient?s Advance Care Plan is present, Code status is documented, Surrogate decision maker is in patient?s record [If Yes, STOP here]: Yes MIPS - Meds 'Current medications' to include all prescriptions, [id number] products, herbals, cannabis/cannabidiol products, and vitamin/mineral/dietary (nutritional) supplements. I have utilized all available resources to obtain, update, or review the patient?s current medications. [If Yes, STOP here]: Yes MIPS - DC The patient has a history of heart transplant or Left Ventricular Assist Device (LVAD). If yes, STOP here.: No The patient has current or prior documentation of left ventricular ejection fraction (LVEF) less than or equal to 40%, or moderate or severely depressed left ventricular systolic function.: No A. The patient was prescribed or already taking an Angiotensin-Converting Enzyme (CAMILLE) Inhibitor, or Angiotensin Receptor Jony (ARB).: Yes B. The patient was prescribed or already taking a beta-jony. [If Yes to Both A & B, STOP here]: No Patient not prescribed/taking CAMILLE or ARB, no reason given.: No Patient not prescribed/taking beta-jony, no reason given.: No PROFEE Charge Codes Discharge inpatient/observation: [id number]
--- NOTE | 2025-06-28 15:57 | PC.NURSE ---
Addendum entered by Iwona Dickens RN 06/28/25 16:33: Pt transportation arrived. Pt encouraged to F/U w/ stress test Pt escorted by staff via W/C to waiting vehicle D/C in stable status Original Note: Pt denies any discomfort, Lungs clear. ECHO done this morning. Unable to do stress test until Mon. Pt awaited results of ECHO and D/C orders. Pt will have Her MD schedule stress test on out pt staus HL D/c intact. Home instructions given
== END 2025-06-28 16:33 | disposition home or self-care (01) ==
LOC: ED 22:30 → AC 22:31
PROVIDERS: Emergency Medicine; Admitting Provider Internal Medicine; Emergency Provider Emergency Medicine; PCP Internal Medicine; Referring Provider Emergency Medicine; Visit Provider Internal Medicine
DX: R07.89 Other chest pain (principal); R06.02 Shortness of breath; R61 Generalized hyperhidrosis; I10 Essential (primary) hypertension; Z85.72 Personal history of non-Hodgkin lymphomas; Z85.89 Personal history of malignant neoplasm of other organs and systems; Z90.5 Acquired absence of kidney; F41.9 Anxiety disorder, unspecified; E66.01 Morbid (severe) obesity due to excess calories; R73.03 Prediabetes
CPT/HCPCS: 36415; 71045; 80048; 80053; 82550; 82962; 83690; 83735; 83880; 84484; 85025; 85610; 85730; 87637; 93005; 96374; 99284; G0378; C8929; J0360; Q9957